=== PATIENT | male | born 1965 | race Caucasian/White ===

== ENCOUNTER 2023-07-24 14:55 | Emergency (ER) | payer OTHER ==
[~2023-07-24] VITALS: Ht 190.5 cm; Wt 124.7 kg
[~2023-07-24 14:55] MED LIST: CEPH-548 PO
[2023-07-24 15:05] VITALS: BP_SYST 138; PULSE 92; RESP 18; TEMP 98.2; O2SAT 97
[2023-07-24] MEDS: cephALEXin 500 MG CAPSULE PO ONE (15:24)
[2023-07-24] MEDS: CIPROFLOXACIN HCL 500 MG TABLET PO ONE (15:25)
[2023-07-24] MEDS: DIPHTH,PERTUSS(ACELL),TET VAC 0.5 ML VIAL (Tdap) I.M. ONE (15:28)
[2023-07-24] MEDS ORDERED: CIPR500T5 PO (16:48)
[2023-07-24] MEDS ORDERED: CEPH250C PO (16:48)
[2023-07-24 16:55] VITALS: BP_SYST 138; PULSE 92; RESP 18; TEMP 98.2; O2SAT 97
== END 2023-07-24 16:56 | disposition home or self-care (01) ==
LOC: SED 14:55
DX: S91.331A Puncture wound without foreign body, right foot, initial encounter (principal); F17.200 Nicotine dependence, unspecified, uncomplicated; Z23 Encounter for immunization; Z88.5 Allergy status to narcotic agent; Z79.899 Other long term (current) drug therapy; Z79.2 Long term (current) use of antibiotics; W22.8XXA Striking against or struck by other objects, initial encounter; Y93.89 Activity, other specified; Y92.89 Other specified places as the place of occurrence of the external cause; Y99.8 Other external cause status
CPT/HCPCS: 90715; 99283

== ENCOUNTER 2023-09-18 11:32 | Emergency (ER) | payer OTHER ==
[~2023-09-18] VITALS: Ht 190.5 cm; Wt 131.5 kg
[~2023-09-18 11:32] MED LIST changes: +CEPH250C PO; +CIPR500T5 PO
[2023-09-18 11:36] VITALS: BP_SYST 141; PULSE 84; RESP 18; TEMP 98.3; O2SAT 98
[2023-09-18] MEDS ORDERED: AMOX-423 PO (12:11)
[2023-09-18] MEDS ORDERED: HYDR-3927 PO (12:11)
[2023-09-18] MEDS: AMPICILLIN SODIUM/SULBACTAM NA 3 GM in NS 100 ML IV ONE (12:28)
[2023-09-18] MEDS ORDERED: AMPICILLIN SODIUM/SULBACTAM NA 3 GM VIAL ONE (12:29)
[2023-09-18 14:01] VITALS: BP_SYST 142; PULSE 82; RESP 16; TEMP 98.1; O2SAT 98
== END 2023-09-18 13:58 | disposition home or self-care (01) ==
LOC: SED 11:32
DX: S62.634B Displaced fracture of distal phalanx of right ring finger, initial encounter for open fracture (principal); Z88.5 Allergy status to narcotic agent; Z79.899 Other long term (current) drug therapy; Z79.2 Long term (current) use of antibiotics; W54.0XXA Bitten by dog, initial encounter; Y93.89 Activity, other specified; Y92.89 Other specified places as the place of occurrence of the external cause; Y99.8 Other external cause status
CPT/HCPCS: 99284; 96365; 73140; 29130; J0295